=== PATIENT | female | born 1985 | race Caucasian/White ===

== ENCOUNTER 2025-05-15 21:20 | Emergency (ER) | payer BC, OTHER ==
[~2025-05-15] VITALS: Ht 157.5 cm; Wt 102.2 kg
[2025-05-15 21:23] VITALS: O2SAT 100
[2025-05-15] MEDS: ACETAMINOPHEN 325MG TABLET PO SCH (22:04)
[2025-05-15 22:49] LABS: BASOPHILS % 1.2 % (0.0-2.0); EOSINOPHILS % 1.3 % (0.0-5.0); HEMATOCRIT. 36.3 % (36.0-48.0); HEMOGLOBIN. 11.8 g/dL (12.0-16.0); LYMPHOCYTES % 26.0 % (20.0-50.0); MEAN PLATELET VOLUME 9.2 fl (7.4-10.4); MONOCYTES % 6.3 % (2.0-8.0); NEUTROPHILS % 65.2 % (40.0-76.0); PLATELET 316 x1000/uL (130-400); RED BLOOD CELL COUNT 4.35 mill/uL (4.2-5.4); RED CELL DISTRIBUTION WIDTH 16.6 % (11.6-14.6)
[2025-05-15 23:00] LABS: HCG SCREEN NEGATIVE
[2025-05-15 23:03] LABS: CREATININE 0.8 mg/dL (0.6-1.0)
[2025-05-15 23:04] LABS: UREA NITROGEN BLOOD 9 mg/dL (9-23)
[2025-05-15 23:05] LABS: ASPARTATE AMINOTRANSFERASE 32 IU/L (<34)
[2025-05-15 23:06] LABS: BILIRUBIN DIRECT < 0.1 mg/dL (<=3.0); BILIRUBIN TOTAL 0.3 mg/dL (0.1-1.0); PROTEIN TOTAL 7.9 g/dL (6.0-8.3)
[2025-05-16 00:08] LABS: CLARITY URINE CLEAR (CLEAR); COLOR URINE ORANGE (YELLOW); GLUCOSE URINE NEGATIVE (NEGATIVE); KETONES URINE NEGATIVE (NEGATIVE); LEUKOCYTE ESTERASE URINE TRACE (NEGATIVE); NITRITE URINE NEGATIVE (NEGATIVE); OCCULT BLOOD URINE 3+ (NEGATIVE); PH URINE 5.5 (4.5-8.0); PROTEIN URINE 1+ (NEGATIVE); SPECIFIC GRAVITY URINE 1.015 (1.005-1.030); UROBILINOGEN URINE 0.2 E.U./dL (0.2-1.0)
[2025-05-16] MEDS ORDERED: NAPR-1074 MT (00:09)
[2025-05-16 00:17] VITALS: BP 117/77; PULSE 65; RESP 15; TEMP 36.6; O2SAT 98
[2025-05-16 00:29] LABS: BACTERIA URINE TRACE; RBC URINE TNTC /hpf (0-2); SQUAMOUS EPITHELIAL CELL URINE 1+ /lpf (RARE/1+)
== END 2025-05-16 00:30 | disposition home or self-care (01) ==
LOC: ER 21:20
DX: N93.8 Other specified abnormal uterine and vaginal bleeding (principal); R03.0 Elevated blood-pressure reading, without diagnosis of hypertension; F41.9 Anxiety disorder, unspecified
CPT/HCPCS: 36415; 76830; 76856; 80048; 80076; 81003; 84703; 85025; 86850; 86900; 99285